=== PATIENT | male | born 1945 | race Caucasian/White ===

== ENCOUNTER 2019-10-08 10:20 | Outpatient (CLI) | payer MEDICARE, OTHER ==
[~2019-10-08] VITALS: Ht 172.7 cm; Wt 93.6 kg
[~2019-10-08 10:20] MED LIST: COREG 3.123.125 MG/T PO; COUMADIN 1MG1 MG/TAB PO; COUMADIN 3MG3 MG/TAB PO; LASIX 40MG TABL40 MG PO; LIPITOR20 MG PO; MIRALAX PA17 GM/Dose PO; PEPCID40 MG PO; PLAVIX 75MG TAB75 MG PO; RENVELA800 MG PO; TUMS500 MG PO; TYLENOL 325MG325 MG PO
[2019-10-08] MEDS ORDERED: COUMADIN 22.5 MG/TAB PO (11:18)
[2019-10-08] MEDS ORDERED: LASIX 40MG TABL40 MG PO (11:19)
[2019-10-08 11:21] VITALS: BP 117/68; PULSE 57; TEMP 97.8
[2019-10-08 11:32] LABS: INR 1.7 (0.8-3.0); PROTHROMBIN TIME 20.3 SECONDS (9.7-12.8)
--- NOTE | 2019-10-08 12:00 | NUR ---
venipuncture was performed by lab for protime/INR, which is 1.7. Per Dr[address] Lindsay, pt is rescheduled for insertion of tunnelled dialysis catheter on Tuesday10/10/19. procedure time of 0800. Pt given verbal and written instructions to hold coumadin tonight and tuesday night, and arrive by [phone] on tuesday at patient admission entrance. pt informed he would have to check in again with admissions. pt counselled that he should be NPO after midnight tuesday night, okay to take meds with sips water tuesday am. Per Neftali, it is okay to continue plavix. I also left a message with dialysis clinic in [place] ([phone]) to let them know pt's new plan. Per Dr. Lindsay, it was okay for pt to go without dialysis till tuesday.
== END 2019-10-08 21:46 | disposition home or self-care (01) ==
LOC: COL.CAR 10:20
PROVIDERS: Radiology Diagnostic Radiology
DX: T82.4 Mechanical complication of vascular dialysis catheter (principal); N18.6 End stage renal disease; Z53.8 Procedure and treatment not carried out for other reasons